=== PATIENT | female | born 2000 | race Caucasian/White ===

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

== ENCOUNTER 2021-01-07 10:21 | Emergency (ER) | payer OTHER ==
[2021-01-07 10:40] VITALS: BMI 27.3
[2021-01-07] MEDS ORDERED: SODIUM CHLORIDE 0.9% 500 ML INFUS.BAG IV ONE (10:49)
[2021-01-07 12:07] LABS: BASO % 0.4 % (0-2.0); HEMATOCRIT 38.2 % (32.4-45.2); LYMPH % 31.8 % (8-40); MCHC 34.1 g/dl (32.0-36.0); MEAN PLT VOLUME 9.4 fl (7.5-11.1); MONO % 6.3 % (3.8-10.2); NEUT % 60.5 % (42.8-82.8); PLATELET COUNT 221 K/MM3 (134-434); RBC 4.49 M/mm3 (3.60-5.2); RDW 13.6 % (11.6-15.6); WHITE BLOOD COUNT 7.4 K/mm3 (4.0-10.0)
[2021-01-07 12:15] LABS: EPI CELLS 34.8 /uL (0-25.1); HCG,QUALITATIVE URINE Negative; HYALINE CASTS 1.02 /uL (0-3.1); URINE BACTERIA 386.1 /uL (0-1359); URINE RBC 105.8 /uL (0-23.9); URINE WBC 36.9 /uL (0-25.8); YEAST NON SEEN (NEGATIVE)
[2021-01-07 12:18] LABS: PH,URINE 5.5 (5.0-8.0); URINE APPEARANCE Clear; URINE BILIRUBIN Negative (NEGATIVE); URINE COLOR Yellow; URINE GLUCOSE (UA) Negative (NEGATIVE); URINE KETONE Negative (NEGATIVE); URINE LEUK ESTERASE Negative (NEGATIVE); URINE NITRITE Negative (NEGATIVE); URINE PROTEIN Negative (NEGATIVE); URINE UROBILINOGEN 0.2 mg/dL (0.2-1.0)
[2021-01-07 13:11] LABS: POTASSIUM 4.6 mmol/L (3.5-5.1)
[2021-01-07 13:13] LABS: CALCIUM 8.9 mg/dL (8.5-10.1)
[2021-01-07 13:17] LABS: CREATININE 0.8 mg/dL (0.55-1.3)
[2021-01-07 13:19] LABS: BILIRUBIN,TOTAL 0.2 mg/dL (0.2-1); TOT PROT 7.6 g/dl (6.4-8.2)
[2021-01-07] MEDS ORDERED: CEFTRIAXONE 1 GM/50 ML BAG ONE (13:24)
[2021-01-07 14:53] VITALS: BP 106/68; PULSE 78; TEMP 98.4
== END 2021-01-07 14:53 | disposition home or self-care (01) ==
LOC: JER 10:21
DX: R30.0 Dysuria (principal)
CPT/HCPCS: 36415; 80053; 81003; 84703; 85025; 87086; 96374; 99284-25